=== PATIENT | female | born 1975 | race African-American/Black ===

== ENCOUNTER 2019-10-17 18:48 | Emergency (ER) | payer OTHER, SELFPAY | END 2019-10-17 18:55 | disposition left against medical advice (07) | PROVIDERS: Emergency Provider Internal Medicine Hematology & Oncology | DX: Z53.21 Procedure and treatment not carried out due to patient leaving prior to being seen by health care provider (principal) | CPT/HCPCS: 99199 ==

== ENCOUNTER 2019-12-15 13:01 | Emergency (ER) | payer OTHER, SELFPAY ==
[2019-12-15 13:07] VITALS: BP 146/94; PULSE 95; RESP 16; TEMP 36.6; O2SAT 98
--- NOTE | 2019-12-15 13:07 | ED.URI ---
HPI - URI/Sore Throat General Chief Complaint: Upper Respiratory Infection Stated Complaint: HEADACHE/RUNNY NOSE/SORE THROAT Time Seen by Provider: 12/15/19 13:07 Source: patient and RN notes reviewed History of Present Illness HPI Narrative: Patient is a 44-year-old female who presents the urgent care with complaints of sore throat, headache and runny nose. Patient states she is also had diarrhea the last 2 days with approximately 7-8 episodes per day. Patient states that she does have a history of migraines and typically piggybacks her ibuprofen and Tylenol 3, which does not seem to work in the last 2 days. Patient states that she is getting Botox for her migraines at the end of next month. Currently denies of any nausea or vomiting. States that she has intermittent abdominal cramps but is currently denying abdominal pain. Denies of any urinary symptoms. Denies any of any known exposure to Covid or strep. Patient denies of any shortness of breath, cough. No other acute complaints. No acute distress noted. Patient aware of the plan of care. Some parts of this dictation were generated by voice recognition software and may contain typographical and/or grammatical inaccuracies. Related Data Home Medications Medication Instructions Recorded Confirmed beclomethasone dipropionate 80 2 inhalation INHALATION BID gm 03/02/19 11/22/19 mcg/actuation HFA breath activated aerosol fluticasone propionate 50 1 spray NASAL DAILY 03/02/19 11/22/19 mcg/actuation nasal spray,suspension montelukast 10 mg tablet 10 mg PO DAILY 03/02/19 11/22/19 Allergies Allergy/AdvReac Type Severity Reaction Status Date / Time venlafaxine Allergy Mild Palpitation Verified 11/22/19 15:50 s latex Allergy Unknown ITCHING Verified 11/22/19 15:50 sumatriptan Allergy Unknown Palpitation Verified 11/22/19 15:50 s SUMATRIPTAN SUCCINATE Allergy Unknown HEART Uncoded 11/22/19 15:50 RACING Review of Systems Review of Systems: Narrative: CONSTITUTIONAL: Denies fever, chills, or sweats. EYES: Denies visual changes, redness, or discharge. ENT: Reports rhinorrhea and sore throat CARDIOVASCULAR: Denies chest pain, palpitations, or edema. RESPIRATORY: Denies cough or dyspnea. GASTROINTESTINAL: Reports of diarrhea and intermittent abdominal cramping GENITOURINARY: Denies dysuria or hematuria. SKIN: Denies rash or itching. MUSCULOSKELETAL: Denies back pain, joint pain, or myalgia. NEUROLOGIC: Reports of headache All other systems reviewed are negative, except as documented in HPI. [facility] Past Medical History Medical History (Updated 12/15/19 @ 13:23 by ELODIA Ambrosio) Anxiety Asthma Candidal intertrigo Depression with anxiety Environmental allergies Left otitis media with effusion Migraine Seasonal allergies Type 2 diabetes mellitus without complications Vitamin D deficiency Family History Family History (Reviewed 11/22/19 @ 15:53 by Yadira Mireles [facility]) Mother Family history of obesity Family history of migraine headaches Hypertension Family history of osteoarthritis Family history of lupus erythematosus Family history of atrial fibrillation Grandparent Family history of glaucoma Family history of malignant neoplasm Diabetes mellitus Other Family history of arthritis Social History Social History (Reviewed 11/22/19 @ 15:53 by Yadira Mireles [facility]) Social History: Works at [employer]. 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 Has 2 children ages 23 yrs and 12 yrs. Smoking status: Never smoker Second hand tobacco smoke exposure: No Alcohol intake: never Comments At the time of my signature, I reviewed and agree with the nursing past medical, surgical, social, and family history. There is no relevant family history pertinent to the patient complaint. Exam Narrative: Exam Narrative: GENERAL: This is a well-nourished, well-developed patient, in no apparent distress. HEAD:
== END 2019-12-15 13:26 | disposition home or self-care (01) ==
PROVIDERS: Emergency Provider Nurse Practitioner Family; PCP Family Medicine
DX: J32.9 Chronic sinusitis, unspecified (principal); J02.9 Acute pharyngitis, unspecified; J45.909 Unspecified asthma, uncomplicated; E11.9 Type 2 diabetes mellitus without complications
CPT/HCPCS: 87081; 87804; 87880; 99213; G0463

== ENCOUNTER → 2021-02-24 07:53 | Outpatient (CLI) | payer OTHER, MEDICAID, SELFPAY ==
[2021-02-24 14:41] LABS: Influenza Control Positive
[2021-02-24 20:23] LABS: SARS-CoV-2 RNA PCR Negative
== END ==
PROVIDERS: PCP Family Medicine; Visit Provider Nurse Practitioner Family
DX: R68.89 Other general symptoms and signs (principal); Z20.822 Contact with and (suspected) exposure to COVID-19
CPT/HCPCS: 87804; C9803; U0003; U0005

== ENCOUNTER 2021-03-25 19:14 | Emergency (ER) | payer OTHER, MEDICAID, SELFPAY ==
[2021-03-25 19:18] VITALS: BP 151/101; PULSE 93; RESP 20; TEMP 36.1; O2SAT 100
--- NOTE | 2021-03-25 19:29 | ED.FEMALEGU ---
HPI - Female Genitourinary General Chief complaint: Urogenital-Female Stated complaint: STD EXPOSURE Source: patient Mode of arrival: ambulatory Limitations: no limitations History of Present Illness HPI Narrative: 45-year-old female presents to [facility] with complaints of white-colored vaginal discharge and itching for the past 2 days. Patient reports that her fianc? notified her today that he tested positive for chlamydia and gonorrhea. Patient denies history of STDs. Patient denies abdominal pain, flank pain, urinary symptoms, fever, bodies, chills, nausea, vomiting or diarrhea. Patient reports that she last had unprotected intercourse 1 week ago. Patient reports that her last menstrual period was 4 to 6 weeks ago -- test is negative here today MD elicited complaint: other (STD exposure) Vaginal discharge: white Exacerbating factors: none Relieving factors: none Related Data Home Medications Medication Instructions Recorded Confirmed beclomethasone dipropionate 80 2 inhalation INHALATION BID gm 03/02/19 02/25/21 mcg/actuation HFA breath activated aerosol bupropion HCl 300 mg 24 hr tablet, 300 mg PO DAILY tablet 01/16/21 02/25/21 extended release buspirone 7.5 mg tablet 7.5 mg PO BID tablet 01/16/21 02/25/21 erenumab-aooe 140 mg/mL 140 mg SUBCUT MONTHLY 01/16/21 02/25/21 subcutaneous auto-injector metformin 500 mg tablet,extended 2,000 mg PO DAILY tablet 02/25/21 02/25/21 release 24 hr Allergies Allergy/AdvReac Type Severity Reaction Status Date / Time onabotulinumtoxinA Allergy Severe Anaphylaxis Verified 02/25/21 13:28 [From Botox] canagliflozin [From Invokana] Allergy Intermediate Rash Verified 02/25/21 13:28 venlafaxine Allergy Mild Palpitation Verified 02/25/21 13:28 s latex Allergy Unknown ITCHING Verified 02/25/21 13:28 sumatriptan Allergy Unknown Palpitation Verified 02/25/21 13:28 s SUMATRIPTAN SUCCINATE Allergy Unknown HEART Uncoded 02/25/21 13:28 RACING Review of Systems Constitutional: Constitutional: Denies chills and Denies fatigue ENT: Denies sore throat Cardiovascular: Cardiovascular: Denies chest pain Respiratory: Respiratory: Denies cough, Denies dyspnea and Denies wheezing Gastrointestinal: Gastrointestinal: Denies abdominal pain, Denies diarrhea, Denies nausea and Denies vomiting Genitourinary: Genitourinary: Denies abnormal vaginal bleeding, Denies nocturia, Denies dysuria, Denies flank pain and Reports vaginal discharge [facility] Past Medical History Medical History Asthma Candidal intertrigo Depression with anxiety Environmental allergies Left otitis media with effusion Migraine Sleep apnea Type 2 diabetes mellitus without complications Vitamin D deficiency Surgical History Surgical History History of 1996, 2006 History of common bile duct surgery in her 20s Family History Family History Mother Family history of obesity Family history of migraine headaches Hypertension Family history of osteoarthritis Family history of lupus erythematosus Family history of atrial fibrillation Grandparent Family history of glaucoma Family history of malignant neoplasm Diabetes mellitus Other Family history of arthritis Social History Social History Social History: Works at [employer]. 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 Has 2 children ages 23 yrs and 12 yrs. Smoking status: Never smoker Second hand tobacco smoke exposure: No Alcohol intake: never Comments At time of signature, I agree with nursing past medical, surgical, social and family history. There is no relevant family history pertinent to the presenting complaint. Exam Const: General: no acute distress
[2021-03-25] MEDS: cefTRIAXone 500 MG VIAL IM (19:39)
== END 2021-03-25 19:53 | disposition home or self-care (01) ==
PROVIDERS: Emergency Provider Nurse Practitioner Family; PCP Family Medicine
DX: N89.8 Other specified noninflammatory disorders of vagina (principal); Z20.2 Contact with and (suspected) exposure to infections with a predominantly sexual mode of transmission; J45.909 Unspecified asthma, uncomplicated; G47.30 Sleep apnea, unspecified; E11.9 Type 2 diabetes mellitus without complications; F41.8 Other specified anxiety disorders
CPT/HCPCS: 81025; 87491; 87591; 87661; 96372; 99214; G0463; J0696